=== PATIENT | female | born 1990 | race Hispanic/Latino ===

== ENCOUNTER 2019-07-28 19:35 | Day surgery (SDC) | payer BC, OTHER ==
[2019-07-28 20:22] VITALS: BP 126/84; TEMP 98.2; BMI 30.9
--- NOTE | 2019-07-28 22:24 | ULT ---
ULTRASOUND BIOPHYSICAL PROFILE: 07/28/19 HISTORY: deceleration. FINDINGS: A single live intrauterine gestation is seen with measurements corresponding to an estimated gestati onal age of 37 weeks, 1 day and NEERU at 08/17/19. CASA measures 6.1 cm. heart rate measures 153 be ats per minute. Placenta is located to the right without placenta previa. Peak systolic velocity in t he umbilical artery measures 56 cm/s with an end diastolic velocity of 31 cm/s and S/D ratio of 1.83. OB BIOPHYSICAL PROFILE: tone: 2 breathin movement: 2 Amniotic fluid: 2 IMPRESSION: Single live IUP with biophysical profile score of 8 out of 8. POS: [facility]
--- NOTE | 2019-07-28 23:42 | PDOC.LDHP ---
Labor and Delivery H&P Chief complaint: contractions HPI: 28 y/o at 38w3d with ctx today. She was in the area so wanted to be checked out before going home. Denies VB, LOF, or decreased FM. ROS neg for HEENT, CV, pulm, GI, , neuro, psych, skin, musculoskeletal, or constitutional symptoms other than mentioned above. OB History Details: 3 prior term SVDs Current complications: none Past Medical History: CHTN - no meds Current medications: pre- vitamins Previous surgical history: appendectomy Allergies/Adverse Reactions: Allergies Allergy/AdvReac Type Severity Reaction Status Date / Time No Known Drug Allergies Allergy Verified 07/28/19 20:12 Social history: none - Physical Exam Vital signs reviewed and normal: yes General: NAD, resting Lungs: nonlabored breathing Abdomen: gravid Extremeties: no edema FHT: category 1 (140s, mod variability, + accels, single late decel initially, resolved with position change.) [place] contractions every: irregular - Vaginal Exam cm dilated: 3 (Unchanged over 2 hours) Effacement: 50% Station: -1 - Assessment 28 y/o at 38w3d with no e/o active labor. status reassuring with reactive NST and BPP 09/07. - Plan -: D/c home with precautions. Advised to keep all appointments.
== END 2019-07-28 22:34 | disposition home or self-care (01) ==
LOC: L&D/OP 19:35
PROVIDERS: ATTEND Advanced Practice Midwife
DX: O47.1 False labor at or after 37 completed weeks of gestation (principal); O10.913 Unspecified pre-existing hypertension complicating pregnancy, third trimester; Z3A.38 38 weeks gestation of pregnancy
CPT/HCPCS: 76819; 99283

== ENCOUNTER 2019-07-29 22:38 | Day surgery (SDC) | payer BC, OTHER ==
[2019-07-29 23:05] VITALS: BP 123/74; TEMP 98; BMI 30.9
--- NOTE | 2019-07-29 23:34 | PDOC.FPROB ---
FMR OB H&P: HPI - History of Present Illness Chief Complaint: contractions History of Present Illness: 28 yo @ 38 weeks who presents for painful contractions. Pt reports contractions every 10 minutes. Reports pos movement, no lof, discharge or bleeding. FMR OB H&P: Current - Care : 4 Para: 3 Gestational age: 38 - OB Labs Blood type: unknown RH: unknown Antibody Screen: unknown HIV: unknown RPR: unknown HepBsAg: unknown Quad screen: unknown Gonorrhea: unknown Chlamydia: unknown FMR OB H&P: History - Past Medical History PMH: NA - OB History OB History: all term FMR OB H&P: Medications - Current Home Medications: Medication Instructions Recorded Confirmed Type Pnv No.95/Ferrous Fum/Folic AC 1 each PO DAILY 07/28/19 07/30/19 History [ [place]] Zantac 150 mg PO DAILY 07/28/19 07/30/19 History Acetaminophen [Tylenol] 1,000 mg PO Q6HR PRN 07/29/19 07/30/19 History Allergies/Adverse Reactions: Allergies Allergy/AdvReac Type Severity Reaction Status Date / Time No Known Drug Allergies Allergy Verified 07/29/19 22:59 FMR OB H&P: ROS - Review of Systems General: denies: fever/chills, fatigue Eyes: denies: vision changes ENT: denies: nasal congestion Cardiovascular: denies: chest pain, edema Gastrointestinal: denies: abdominal pain, cramping, nausea, vomiting, diarrhea, constipation Genitourinary (Female): reports: contractions. denies: vaginal discharge, vaginal pain, vaginal bleeding Musculoskeletal: denies: decrease range of motion Neurologic: denies: numbness, seizures, weakness Integumentary: denies: rash FMR OB H&P: Vital Signs - Maternal Vital signs: Vital Signs - First Documented Temp Pulse Resp BP 98.0 F 91 18 123/74 07/29/19 22:58 07/29/19 22:58 07/29/19 22:58 07/29/19 22:58 - Heart Tones Baseline: 130 Variability: moderate Acceleration: present Deceleration: absent Category: category 1 [place] contractions every: 3 min, felt every 7-10 minutes FMR OB H&P: Physical Exam - Physical Exam General: NAD, awake, alert and oriented HEENT: PERRLA, EOMI, MMM, grossly normal vision, grossly normal hearing Neck: trachea midline Heart: RRR, normal S1/S2, no murmurs/rubs/gallops, pulses present, no edema General: CTAB, no respiratory distress, good air movement, no rales/rhonchi, no wheezing Abdomen: soft, gravid, non-tender, bowel sound present, no masses Neurological: no focal deficit Skin: no jaundice - Pelvic Exam SVE: /-1 FMR OB H&P: A/P - Problem List (1) Term Status: Acute Code(s): Z34.90 - ENCNTR FOR SUPRVSN OF NORMAL , UNSP, UNSP TRIMESTER Disposition: 28 yo G4 @ 38 weeks with painful contractions - pt cervical exam unchanged after 2 hours observation - pt given strict return labor precautions and pt agreeable - will dc to home with return precautions Discussion: Date/Time: 07/29/19 2889 This H&P was discussed with [] and [] who agree with the above documentation and plan. Addendum - Attending - Attending Attestation Date/Time: 07/30/19 0205 I personally evaluated the patient and discussed the management with Dr. Oliva. I agree with the History, Examination, Assessment and Plan documented above.
== END 2019-07-30 01:45 | disposition home or self-care (01) ==
LOC: L&D/OP 22:38
PROVIDERS: ATTEND Student in an Organized Health Care Education/Training Program
DX: Z34.83 Encounter for supervision of other normal pregnancy, third trimester (principal); Z3A.38 38 weeks gestation of pregnancy; Z79.899 Other long term (current) drug therapy

== ENCOUNTER 2019-07-30 05:31 | Inpatient (IN) | payer BC, OTHER ==
[2019-07-30] MEDS ORDERED: HYDROcodone/Acetaminophen 5/325 mg Tablet PO PRN ×4 (06:20→14:24)
[2019-07-30] MEDS ORDERED: Butorphanol Tartrate 1 MG/ML VIAL SLOW IVP PRN (06:20)
[2019-07-30] MEDS ORDERED: Diphenoxylate HCl/Atropine Tablet PO PRN ×2 (06:20)
[2019-07-30] MEDS ORDERED: Ibuprofen 800 MG TAB PO PRN (06:20)
[2019-07-30] MEDS ORDERED: hydrALAZINE 20 MG/ML VIAL SLOW IVP PRN ×2 (06:20→14:24)
[2019-07-30] MEDS ORDERED: Carboprost 250 MCG/ML AMP IM PRN (06:20)
[2019-07-30] MEDS ORDERED: NS / Oxytocin 40 units/1000ml 1,000 ML IV PRN (06:20)
[2019-07-30] MEDS ORDERED: Promethazine HCl 25 MG/ML VIAL IM PRN (06:20)
[2019-07-30] MEDS ORDERED: Methylergonovine 0.2 MG/ML VIAL IM PRN ×2 (06:20→14:24)
[2019-07-30] MEDS ORDERED: Lidocaine 1% (PF) 30 ML VIAL SC PRN (06:20)
[2019-07-30] MEDS: Lactated Ringer's 1,000 ML IV SCH ×3 (06:20→12:42)
[2019-07-30] MEDS ORDERED: Ondansetron PF 4 MG/2 ML Vial IVP PRN ×2 (06:20→14:24)
[2019-07-30] MEDS ORDERED: NS w/ Oxytocin 10 units 500 ML IV SCH ×2 (06:30→11:30)
[2019-07-30 06:59] LABS: Mean Corpuscular Hemoglobin 30.2 pg (27.0-31.0); Mean Corpuscular Volume 86.3 fL (78.0-98.0); Mean Platelet Volume 9.8 fL (7.4-10.4); Platelet Count 203 thou/uL (130-400); RBC Distribution Width 13.3 % (11.5-14.5); Red Blood Cell (RBC) Count 4.62 mill/uL (4.20-5.40); White Blood Cell (WBC) Count 13.2 thou/uL (4.8-10.8)
[2019-07-30 07:07] VITALS: BMI 30.7
[2019-07-30] MEDS ORDERED: Fentanyl 4 mcg/Bup 0.1% Cadd 100 ML ONE (07:20)
[2019-07-30 07:37] LABS: Hep B Surf Ag Non-Reactive S/CO (NonReactive); Syphilis Antibody Nonreactive (Nonreactive); Syphilis Antibody Index 0.03 S/CO (<1.00 Non-Reactive)
[2019-07-30] MEDS ORDERED: PHENYLEPHRINE-NS 100 MCG/ML 10 ML SYRINGE ONE (08:05)
--- NOTE | 2019-07-30 11:11 | PDOC.LDHP ---
Labor and Delivery H&P Chief complaint: contractions HPI: Patient arrived for the 3rd time to L&D complaining of contractions. She is having some strange anxiety, heart palpitations, and fear of not waking up. Current gestational age (weeks): 38 (5 days) Due date: 08/08/19 Dating criteria: first trimester ultrasound (at 9 week) Grav: 4 Para: 3 Abnormal US findings: No Past Medical History: Anxiety and depression Current medications: pre- vitamins Previous surgical history: appendectomy Allergies/Adverse Reactions: Allergies Allergy/AdvReac Type Severity Reaction Status Date / Time No Known Drug Allergies Allergy Verified 07/29/19 22:59 Social history: none - Physical Exam Vital signs reviewed and normal: yes Abnormal vital signs: Episodes of tachycardia to 150s. Low BPs after Epidural. 90/40s. Resolved General: resting Heart: RRR Lungs: nonlabored breathing Abdomen: gravid Extremeties: trace edema FHT: category 1 [place] contractions every: q9 mins - Vaginal Exam cm dilated: 7 Effacement: 90% Station: 0 - OB Labs Blood type: O RH: positive Antibody Screen: negative HIV: negative RPR: negative HEPSAg: negative 1 hour GCT: negative GBS: negative Urine drug screen: negative Rubella: immune - Assessment L&D Assessment: term patient in labor - Plan Plan: admit to L&D, labor augmentation if indicated (AROMed at 1100 and IUPC and FSE placed.)
--- NOTE | 2019-07-30 13:32 | PDOC.OPDEL ---
OB Operative/Delivery Note Delivery Dr/Surgeon: Venu Ulloa Pre-Delivery Diagnosis: active labor Procedure/Post Delivery Dx: spontaneous vaginal delivery Weeks gestation: 38 Anesthesia: epidural - Findings A Sex: female Weight: 8 lb 12 oz - 1 min: 9 - 5 min: 9 - Additional Findings/Plan Placenta delivered: spontaneous Repaired Obstetrical Laceration: none Estimated blood loss: 100mL Compilations/Other Findings: Tight nuchal. Post delivery plan: routine recovery
[2019-07-30] MEDS ORDERED: Milk Of Magnesia 30 ML UDCUP PO PRN (14:24)
[2019-07-30] MEDS ORDERED: Bisacodyl 10 MG SUPP PR PRN (14:24)
[2019-07-30] MEDS ORDERED: Benzocaine-Menthol 82.5 ML CAN TOP PRN (14:24)
[2019-07-30] MEDS ORDERED: Misoprostol 200 MCG TAB VAG PRN (14:24)
[2019-07-30] MEDS ORDERED: NS / Oxytocin 40 units/1000ml 1,000 ML IV SCH (14:24)
[2019-07-30] MEDS ORDERED: hydrOXYzine 25 MG TAB PO SCH (15:00)
[2019-07-30] MEDS: Ferrous Sulfate 325 MG TAB PO SCH (18:13)
[2019-07-30] MEDS: Ibuprofen 800 MG TAB PO SCH ×2 (19:33→21:27)
[2019-07-30] MEDS: Docusate Calcium (SURFAK) 240 MG CAP PO SCH (21:27)
[2019-07-30] MEDS ORDERED: Sodium Chloride 0.9% 10 ML ONE (23:47)
[2019-07-31] MEDS: Ibuprofen 800 MG TAB PO SCH ×3 (06:44→21:28)
--- NOTE | 2019-07-31 06:46 | PDOC.PP ---
Post Progress Note Post Day #: 1 Subjective: Patient is doing well. Baby ate well at first but has not eten much since then and has been spitting up a lot. Her bleeding is ok and she is up to the restroom without difficulty. PO intake tolerated: yes Flatus: yes Ambulation: yes Vital Signs (12 hours) Temp Pulse Resp BP Pulse Ox 07/31/19 01:30 97.9 F 78 20 108/58 L 07/30/19 21:30 98.0 F 07/30/19 19:45 98.9 F 91 18 133/83 98 Weight Weight 185 lb - Physical Examination General: NAD Respiratory: non-labored breathing Abdominal: + bowel sounds, lochia (minimal) Fundus firm & at: -1 Extremities: negative homans (B) Skin: no rash Neurological: no gross focal deficits Psychiatric: A&Ox3, normal affect Result Diagrams: 07/30/19 06:45 Additional Labs: Post Labs Blood Type O POSITIVE 07/30/19 06:45 Hep Bs Antigen Non-Reactive S/CO (NonReactive) 07/30/19 06:45 (1) (spontaneous vaginal delivery) Code(s): O80 - ENCOUNTER FOR FULL-TERM UNCOMPLICATED DELIVERY Status: Acute - Assessment/Plan A: g4 now p4 s/p at 38 weeks with nml ppd 1 exam p: Discharge home today if is discharged. routine care until discharge.
[2019-07-31] MEDS ORDERED: Adacel (T-DAP) 0.5 ML SYRINGE IM ONE (09:00)
[2019-07-31] MEDS: Ferrous Sulfate 325 MG TAB PO SCH ×2 (09:42→18:40)
[2019-07-31] MEDS: Docusate Calcium (SURFAK) 240 MG CAP PO SCH ×2 (09:47→21:28)
[2019-07-31] MEDS ORDERED: Bupivacaine/Epinephrine 0.25% 30 ML VIAL ONE (11:11)
[2019-08-01] MEDS: Ibuprofen 800 MG TAB PO SCH ×2 (06:19→07:37)
[2019-08-01] MEDS: Docusate Calcium (SURFAK) 240 MG CAP PO SCH (07:38)
[2019-08-01] MEDS: Ferrous Sulfate 325 MG TAB PO SCH (07:42)
[2019-08-01 08:03] VITALS: BP 129/84; TEMP 97.7
== END 2019-08-01 11:45 | disposition home or self-care (01) | DRG 807 ==
LOC: L&D/OP 05:31 → L&D 06:11 → 3SW 17:16
PROVIDERS: ADMIT Student in an Organized Health Care Education/Training Program; ATTEND Student in an Organized Health Care Education/Training Program
PROC: 10907ZC Drainage of Amniotic Fluid, Therapeutic from Products of Conception, Via Natural or Artificial Opening (ICD-10-PCS; principal; 2019-07-30)
PROC: 10E0XZZ Delivery of Products of Conception, External Approach (ICD-10-PCS; 2019-07-30)
DX: O99.344 Other mental disorders complicating childbirth (principal); Z37.0 Single live birth; O69.1XX0 Labor and delivery complicated by cord around neck, with compression, not applicable or unspecified; F41.8 Other specified anxiety disorders; Z3A.38 38 weeks gestation of pregnancy
CPT/HCPCS: 36415; 76819; 85027; 86780; 86850; 86900; 86901; 87340; 99283; J0360; J2001; J2590